=== PATIENT | female | born 1980 | race Caucasian/White ===

== ENCOUNTER 2019-02-23 11:55 | Outpatient (CLI) | payer OTHER, SELFPAY ==
[2019-02-23 13:44] LABS: TSH 0.05 uIU/mL (0.358-3.74)
== END 2019-02-23 12:15 ==
PROVIDERS: PCP Emergency Medicine; Visit Provider Internal Medicine
DX: E89.0 Postprocedural hypothyroidism (principal)
CPT/HCPCS: 36415; 84443

== ENCOUNTER 2019-05-11 11:25 | Outpatient (CLI) | payer OTHER, SELFPAY ==
[2019-05-11 13:05] LABS: TSH 0.21 uIU/mL (0.358-3.74)
== END 2019-05-11 11:45 ==
PROVIDERS: PCP Emergency Medicine; Visit Provider Internal Medicine
DX: E03.9 Hypothyroidism, unspecified (principal)
CPT/HCPCS: 36415; 84443

== ENCOUNTER 2019-07-27 11:52 | Outpatient (CLI) | payer OTHER, SELFPAY ==
[2019-07-28 11:43] LABS: Lyme Ab w Rflx to Lyme Confirm Negative
== END 2019-07-27 12:12 ==
PROVIDERS: PCP Emergency Medicine; Visit Provider Emergency Medicine
DX: M25.50 Pain in unspecified joint (principal); J02.9 Acute pharyngitis, unspecified
CPT/HCPCS: 36415; 86618

== ENCOUNTER 2019-08-04 10:55 | Outpatient (CLI) | payer OTHER, SELFPAY ==
[2019-08-04 13:59] LABS: TSH 1.61 uIU/mL (0.36-3.74)
== END 2019-08-04 11:15 ==
PROVIDERS: PCP Emergency Medicine; Visit Provider Internal Medicine
DX: E03.9 Hypothyroidism, unspecified (principal)
CPT/HCPCS: 36415; 84443

== ENCOUNTER 2020-07-17 04:51 | Outpatient (CLI) | payer OTHER, SELFPAY ==
[2020-07-17 12:13] LABS: TSH 2.35 uIU/mL (0.36-3.74)
[2020-07-20 16:33] LABS: Thyroglobulin Antibody <1.8 IU/mL (<1.8); Thyroglobulin Tumor Marker 0.1 ng/mL
== END 2020-07-17 05:11 ==
PROVIDERS: PCP Emergency Medicine; Visit Provider Internal Medicine
DX: Z85.850 Personal history of malignant neoplasm of thyroid (principal)
CPT/HCPCS: 36415; 84432; 84443; 86800

== ENCOUNTER 2020-07-19 04:17 | Outpatient (CLI) | payer OTHER, SELFPAY | END 2020-07-19 04:37 | PROVIDERS: PCP Emergency Medicine; Visit Provider Internal Medicine | DX: E03.9 Hypothyroidism, unspecified (principal); Z85.850 Personal history of malignant neoplasm of thyroid | CPT/HCPCS: 84432; 86800 ==

== ENCOUNTER 2020-10-19 02:12 | Outpatient (CLI) | payer OTHER, SELFPAY ==
[2020-10-19 13:54] LABS: TSH 0.52 uIU/mL (0.36-3.74)
== END 2020-10-19 02:32 ==
PROVIDERS: PCP Emergency Medicine; Visit Provider Internal Medicine
DX: E89.0 Postprocedural hypothyroidism (principal)
CPT/HCPCS: 36415; 84443

== ENCOUNTER 2021-12-30 01:47 | Outpatient (CLI) | payer OTHER, SELFPAY ==
[2021-12-30 16:39] LABS: TSH 0.09 uIU/mL (0.36-3.74)
[2022-01-01 18:25] LABS: Thyroglobulin Antibody <1.8 IU/mL (<1.8); Thyroglobulin Tumor Marker <0.1 ng/mL
== END 2021-12-30 01:48 | disposition home or self-care (01) ==
LOC: LBO 01:47
PROVIDERS: PCP Nurse Practitioner Family; Visit Provider Internal Medicine
DX: Z85.850 Personal history of malignant neoplasm of thyroid (principal)
CPT/HCPCS: 36415; 84432; 84443; 86800

== ENCOUNTER 2022-07-22 02:28 | Outpatient (CLI) | payer OTHER, SELFPAY ==
[2022-07-22 12:40] LABS: TSH 5.94 uIU/mL (0.36-3.74)
== END 2022-07-22 02:29 | disposition home or self-care (01) ==
LOC: LOS 02:28
PROVIDERS: PCP Nurse Practitioner Family; Visit Provider Internal Medicine
DX: E89.0 Postprocedural hypothyroidism (principal)
CPT/HCPCS: 36415; 84443

== ENCOUNTER 2022-09-10 13:13 | Outpatient (REF) | payer OTHER, SELFPAY ==
--- NOTE | 2022-09-10 11:10 | PAPFT_PTH ---
PATIENT: Jazzmine Escoto LOC: [facility] U#:[id number] AGE/SX: 42/F ROOM: RE09/10/[address]: Miranda Page NP : 1980 BED: DIS: 09/10/2022 SPEC #: [id number] RECD: 09/10/22 13:21 STATUS: CHITOS[place] REQ #: [id number] SKYLAR: 09/10/22 11:[address]: Miranda Page NP DEPT: [facility] Cytology RECD BY: Imani Herrera ENTERED: 09/10/22 13:21 SP TYPE: PAPFT OTHR DR: Alonso Urbina NP Tissues: 1 - CX/ENDOCX FOR PAP SMEARS Procedures: PAP THIN PREP/[facility] Screening HPV DNA PROBE Comments: [id number]
== END 2022-09-10 13:14 | disposition home or self-care (01) ==
LOC: LBN 13:13
PROVIDERS: PCP Nurse Practitioner Family; Visit Provider Nurse Practitioner Women's Health
DX: Z12.4 Encounter for screening for malignant neoplasm of cervix (principal); Z11.51 Encounter for screening for human papillomavirus (HPV)
CPT/HCPCS: 88142; 87624

== ENCOUNTER → 2022-10-15 02:08 | Outpatient (CLI) | payer OTHER, SELFPAY ==
--- NOTE | 2022-10-15 09:12 | DI.MAMMO_ITS ---
Exam(s) MAMMO SCREENING EXAM: MAMMO SCREENING CLINICAL HISTORY: screening. TECHNIQUE: Bilateral full field digital CC and MLO mammographic images were obtained with 3D tomosyn thesis and utilizing computer aided detection (CAD). COMPARISON: Baseline FINDINGS: There are no spiculated masses nor malignant appearing microcalcification groups. There is no significant architectural distortion nor skin thickening-retraction. IMPRESSION: No radiographic evidence of malignancy. BI-RADS Category 1 - Negative Breast Density - Category B - Scattered areas of fibroglandular density Breast density Category C or D implies that the patient has dense breast tissue. Dense breast tissue can make it harder to find cancer on a mammogram. Dense breast tissue is also associated with an incr eased risk of breast cancer. This information about the result of the mammogram report was provided to the patient to raise their awareness. Use this report when you speak with the patient about their risks for breast cancer, which includes their family history. At that time, you may recommend additional screening tests (Ultrasoun d or MRI) as these tests may add significant information. A negative radiographic report should not delay biopsy if a dominant or clinically suspicious mass is present. Up to ten percent of cancers are not identified on mammography. A negative report may reinforce clinical impression. Adenosis and dense breasts may obscure an underlying neoplasm. False positive reports average 6 to 10%. Patient will receive a letter notifying them of these results.
== END ==
PROVIDERS: PCP Nurse Practitioner Family; Visit Provider Nurse Practitioner Women's Health
DX: Z12.31 Encounter for screening mammogram for malignant neoplasm of breast (principal)
CPT/HCPCS: 77063; 77067

== ENCOUNTER 2022-10-15 03:38 | Outpatient (CLI) | payer OTHER, SELFPAY ==
[2022-10-15 09:55] LABS: Calculated LDL 92 mg/dL (<100); Cholesterol 175 mg/dL (<200); HDL Cholesterol 75 mg/dL (40-60); Triglyceride 43 mg/dL (<150)
[2022-10-15 10:09] LABS: Hemoglobin A1C 5.6 % (<5.7)
[2022-10-17 10:54] LABS: Lipoprotein (a) 15 nmol/L (<75)
== END 2022-10-15 03:39 | disposition home or self-care (01) ==
LOC: LBO 03:39
PROVIDERS: PCP Nurse Practitioner Family; Visit Provider Nurse Practitioner Family
DX: Z00.00 Encounter for general adult medical examination without abnormal findings (principal); Z13.220 Encounter for screening for lipoid disorders; Z13.1 Encounter for screening for diabetes mellitus
CPT/HCPCS: 36415; 80061; 83695; 83036

== ENCOUNTER 2024-01-02 12:00 | Outpatient (REF) | payer OTHER, SELFPAY ==
[2024-01-02 15:18] LABS: TSH (W/Ref FT4) 0.94 uIU/mL (0.36-3.74)
[2024-01-02 15:34] LABS: ALT 24 U/L (14-59); AST 22 U/L (15-37); Albumin 4.1 g/dL (3.4-5.0); Alkaline Phosphatase 56 U/L (46-116); Anion Gap 11.4 mmol/L (3-11); BUN 15 mg/dL (7-18); Bilirubin, Total 0.8 mg/dL (0.2-1.0); CO2 26.6 mmol/L (21.0-32.0); CREATININE 0.7 mg/dL (0.55-1.02); Calcium 8.9 mg/dL (8.5-10.1); Chloride 104 mmol/L (98-107); Estimated GFR 111.36 (mL/min/1.73m2); Glucose 82 mg/dL (74-106); Potassium 4.1 mmol/L (3.5-5.1); Sodium 142 mmol/L (136-145); Total Protein 7.8 g/dL (6.4-8.2)
[2024-01-04 10:16] LABS: Hepatitis C Ab w Rflx HCV PCR Negative (Negative)
== END 2024-01-02 12:01 | disposition home or self-care (01) ==
LOC: LBN 12:00
PROVIDERS: PCP Nurse Practitioner Family; Visit Provider Nurse Practitioner Family
DX: E89.0 Postprocedural hypothyroidism (principal); Z11.59 Encounter for screening for other viral diseases
CPT/HCPCS: 80053; 86803; 84443

== ENCOUNTER 2024-10-18 00:56 | Outpatient (CLI) | payer OTHER, SELFPAY ==
--- NOTE | 2024-10-18 16:20 | DI.MAMMO_ITS ---
Exam(s) MAMMO SCREENING EXAM: MAMMO SCREENING CLINICAL HISTORY: screening,z12.39 TECHNIQUE: Mammograms were interpreted according to the usual protocol including computer analysis w [employer] CAD system, tomosynthesis and C-view imaging. COMPARISON: 2021 FINDINGS: The breasts are composed of scattered fibroglandular densities, Breast Density category B. No suspicious masses or suspicious microcalcifications are seen. No skin thickening or abnormal axillary lymph nodes are seen. There has been no significant change from prior exams. IMPRESSION: BI-RADS Category 1, Negative mammogram Yearly screening mammography is recommended. Breast Density - Category B, scattered fibroglandular densities. A negative radiographic report should not delay biopsy if a dominant or clinically suspicious mass is present. Up to ten percent of cancers are not identified on mammography. A negative report may reinforce clinical impression. Adenosis and dense breasts may obscure an underlying neoplasm. False positive reports average 6 to 10%. Patient will receive a letter notifying them of these results.
== END 2024-10-18 01:16 ==
LOC: DI 00:57
PROVIDERS: PCP Nurse Practitioner Family; Visit Provider Nurse Practitioner Family
DX: Z12.31 Encounter for screening mammogram for malignant neoplasm of breast (principal); R92.323 Mammographic fibroglandular density, bilateral breasts
CPT/HCPCS: 77063; 77067